=== PATIENT | male | born 1975 | race Caucasian/White ===

== ENCOUNTER 2022-06-27 19:22 | Inpatient (IN) | payer BC ==
[~2022-06-27] VITALS: Ht 170.2 cm; Wt 69.9 kg
[2022-06-27 20:57] LABS: CHLORIDE 106 mEq/L (98-107)
[2022-06-27] MEDS ORDERED: DILTIAZEM HCL 5MG/ML 5ML VIAL IV ONE (21:00)
[2022-06-27] MEDS ORDERED: DILTIAZEM HCL 125 MG in DEXT 5% WATER 100 ML IV ONE (21:00)
[2022-06-27 21:02] LABS: BASOPHILS % 1.1 % (0.0-2.0); EOSINOPHILS % 2.4 % (0.0-5.0); HEMATOCRIT. 46.3 % (42.0-52.0); HEMOGLOBIN. 15.4 g/dL (14.0-18.0); LYMPHOCYTES % 31.5 % (20.0-50.0); MEAN CORPUSCULAR HEMOGLOBIN 29.3 pg (28.0-32.0); MEAN CORPUSCULAR VOLUME 88.1 fL (80.0-94.0); MEAN PLATELET VOLUME 8.1 fl (7.4-10.4); MONOCYTES % 8.4 % (2.0-8.0); NEUTROPHILS % 56.6 % (40.0-76.0); PLATELET 268 x1000/uL (130-400); RED BLOOD CELL COUNT 5.26 mill/uL (4.7-6.1); RED CELL DISTRIBUTION WIDTH 13.3 % (11.6-14.6)
[2022-06-28] VITALS (13 sets, daily range): BP systolic 94–117; BP diastolic 45–76
[2022-06-28] MEDS ORDERED: DILTIAZEM 125MG/125ML PMX 125 ML IV SCH (04:30)
[2022-06-28] MEDS ORDERED: ATENOLOL PO (08:44)
[2022-06-28] MEDS ORDERED: LISINOPRIL PO (08:44)
[2022-06-28] MEDS ORDERED: ENOXAPARIN 40MG/0.4ML SYR SUBCUT SCH (09:00)
[2022-06-28] MEDS ORDERED: ATENOLOL 25MG TABLET PO SCH (10:30)
[2022-06-28] MEDS ORDERED: LISINOPRIL 10MG TABLET PO SCH (10:30)
[2022-06-28 10:33] LABS: EOSINOPHILS % 2.6 % (0.0-5.0); HEMATOCRIT. 44.4 % (42.0-52.0); HEMOGLOBIN. 14.9 g/dL (14.0-18.0); LYMPHOCYTES % 31.4 % (20.0-50.0); MEAN CORPUSCULAR HEMOGLOBIN 29.7 pg (28.0-32.0); MEAN CORPUSCULAR VOLUME 88.4 fL (80.0-94.0); MEAN PLATELET VOLUME 8.2 fl (7.4-10.4); MONOCYTES % 6.8 % (2.0-8.0); NEUTROPHILS % 58.2 % (40.0-76.0); PLATELET 261 x1000/uL (130-400); RED BLOOD CELL COUNT 5.03 mill/uL (4.7-6.1); RED CELL DISTRIBUTION WIDTH 13.6 % (11.6-14.6)
[2022-06-28 10:35] LABS: CHLORIDE 107 mEq/L (98-107)
[2022-06-28 10:44] LABS: HDL CHOLESTEROL 44 mg/dL (40-59); LDL CHOLESTEROL 133 mg/dL (5-100)
[2022-06-28] MEDS: DILTIAZEM HCL 30MG TABLET PO SCH ×2 (12:00→18:05)
[2022-06-28 16:57] LABS: CREATINE KINASE 95 IU/L (39-308); CREATINE KINASE MB FRACTION < 1.0 ng/mL (0.5-3.6)
[2022-06-28] MEDS ORDERED: APIXABAN 5 MG TABLET PO SCH (17:00)
[2022-06-28] MEDS ORDERED: APIX5TAB MT (17:39)
[2022-06-28] MEDS ORDERED: DILT30TA38 MT (17:39)
[2022-06-28] MEDS ORDERED: ATOR10TA MT (17:42)
[2022-06-29] MEDS ORDERED: DILTIAZEM HCL 125 MG in DEXTROSE 5% WATER 125 ML IV SCH (06:00)
== END 2022-06-28 18:20 | disposition home or self-care (01) | DRG 310 ==
LOC: ER 19:22 → MICUSO 22:34 → EDBEDREQTM 22:43 → EDBEDREQ 22:43 → CANRESERV 23:01 → ENRESERV 23:01 → 3WST 06-28 02:28
PROVIDERS: ADMIT Internal Medicine; ATTEND Internal Medicine
DX: I48.0 Paroxysmal atrial fibrillation (principal); I10 Essential (primary) hypertension; E78.5 Hyperlipidemia, unspecified
CPT/HCPCS: 36415; 71045; 80053; 80061; 82550; 82553; 83880; 84484; 85025; 93005; 93306; 99285; J1650; J3490; J7060